=== PATIENT | female | born 1975 | race Caucasian/White ===

== ENCOUNTER 2016-10-16 09:23 | Emergency (ER) | payer OTHER ==
[2016-10-16 09:23] VITALS: BMI 26.8
[2016-10-16 10:46] LABS: RBC URINE 1 /hpf (0-3); URINE BACTERIA RARE (<OCC); URINE BILIRUBIN NEGATIVE (NEGATIVE); URINE BLOOD NEGATIVE (NEGATIVE); URINE COLOR Yellow (YELLOW); URINE GLUCOSE (UA) NORMAL (Normal); URINE KETONE NEGATIVE (NEGATIVE); URINE LEUKOCYTE ESTERASE TRACE Leu/uL (Negative); URINE PROTEIN NEGATIVE (NEGATIVE); URINE UROBILINOGEN NORMAL mg/dL (0.2-1.0); WBC URINE 11 /hpf (0-5)
--- NOTE | 2016-10-16 11:00 | C.PDOC ---
History Of Present Illness 41 y/o female presents to the ED with complains of suprapubic pain x6 days which started after seeing OBGYMedardo Hernandez. 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 Pt states pain has been constant, radiates to back and has associated dysuria. Pt has not made appointment for US yet. Denies GI symptoms, fever, chills, vag bleeding or any other complaints. History of hysterectomy. Time Seen by Provider: 10/16/16 09:47 Chief Complaint (Nursing): Female Genitourinary History Per: Patient History/Exam Limitations: no limitations Onset/Duration Of Symptoms: Days Current Symptoms Are (Timing): Still Present Severity: Moderate Recent travel outside of the [place]: No Past Medical History Reviewed: Historical Data, Nursing Documentation, Vital Signs Vital Signs: Last Vital Signs Temp 98 F 10/16/16 09:27 Pulse 99 H 10/16/16 09:27 Resp 18 10/16/16 09:27 BP 103/70 10/16/16 09:27 Pulse Ox 84 L 10/16/16 12:51 Surgical History: (x2) - [facility] Procedures ASPIR CURETT UTERUS NEC (01/20/14) LAPAROSCOP LYSIS-PERITONEAL ADHES (06/15/14) LAPAROSCOPIC TOTAL ABDOMINAL HYSTERECTOMY (01/20/14) OTH LAPAROSCOP LOCAL EXCIS/DESTRUCT OVARY (01/20/14) REMOVE BOTH FALLOP TUBES (01/20/14) Family History: States: Unknown Family Hx - Social History Hx Tobacco Use: No Hx Alcohol Use: No Hx Substance Use: No - Immunization History Hx Tetanus Toxoid Vaccination: No Hx Influenza Vaccination: No Hx Pneumococcal Vaccination: No Review Of Systems Except As Marked, All Systems Reviewed And Found Negative. Constitutional: Negative for: Fever, Chills Gastrointestinal: Positive for: Abdominal Pain (suprapubic). Negative for: Vomiting, Diarrhea Genitourinary: Positive for: Dysuria. Negative for: Hematuria, Vaginal Bleeding Musculoskeletal: Positive for: Back Pain Physical Exam - Physical Exam Appears: Non-toxic, No Acute Distress Skin: Warm, Dry, No Rash Head: Atraumatic, Normacephalic Neck: Normal, Normal ROM Chest: Symmetrical Cardiovascular: Rhythm Regular, No Murmur Respiratory: Normal Breath Sounds, No Rales, No Rhonchi, No Wheezing Gastrointestinal/Abdominal: Soft, Tenderness (mild suprapubic), No Guarding, No Rebound Back: Normal Inspection, No CVA Tenderness Extremity: Normal ROM Extremity: Bilateral: Atraumatic Neurological/Psych: Oriented x3, Normal Speech ED Course And Treatment - Laboratory Results Lab Interpretation: Abnormal Interpretation Of Abnormal: UA shows (+) UTI O2 Sat by Pulse Oximetry: 84 (room air) Pulse Ox Interpretation: Abnormal - CT Scan/US US TV Other Rad Studies (CT/US): Read By Radiologist CT/US Interpretation: FINDINGS: No fluid collections, soft tissue masses or other findings of consequence. No uterine remnant or evidence of residual adnexal tissue. IMPRESSION: No acute findings related to/accounting for the clinical presentation. Progress Note: Plan: urine, US transvaginal Medical Decision Making Medical Decision Makin yo F presents with pelvic pain and dysuria x 6 days. Plan: -UA, urine culture -TV US w/ doppler UA shows (+) UTI. TV US shows no acute findings. Lab and US results d/w the patient. On re-evaluation, patient is laying in bed comfortably in no acute distress, c/o mild suprapubic pain still. On exam, abdomen remains soft with mild suprapubic tenderness, with no guarding and no rebound. Given toradol IM for pain. Based on history, exam and diagnostic results, plan will be for outpatient f/u with the clinic. Patient verbalize understanding of diagnosis and further plan of care. I have given the patient opportunity to ask questions. Follow up with the clinic in 2 days without fail. Take medications as prescribed. Return to the ER at any time for any new or worsening symptoms. Disposition - Disposition Disposition: HOME/ ROUTINE Disposition Time: 12:15 Condition: GOOD Additional Instructions: Follow up with the clinic in 2 days without fail. Take medications as prescribed. Return to the ER at any time for any new or worsening symptoms. 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 - Scribe Statement The provider has reviewed the documentation as recorded by the Scribjoseline Casanova All medical record entries made by the Siobhanibjoseline were at my direction and personally dictated by me. I have reviewed the chart and agree that the record accurately reflects my personal performance of the history, physical exam, medical decision making, and the department course for this patient. I have also personally directed, reviewed, and agree with the discharge instructions and disposition.
[2016-10-16] MEDS ORDERED: Sodium Chloride 0.9% 0 ML ONE (11:23)
--- NOTE | 2016-10-16 12:21 | US ---
PROCEDURE: Pelvic ultrasound HISTORY: Pelvic pain. Relevant surgical history: Hysterectomy, oophorectomy March 2016. COMPARISON: 02/05/2015 preoperative pelvic ultrasound. TECHNIQUE: Transabdominal, transvaginal. Real -time technique with 2D, duplex and color Doppler. FINDINGS: No fluid collections, soft tissue masses or other findings of consequence. No uterine remnant or evidence of residual adnexal tissue. IMPRESSION: No acute findings related to/accounting for the clinical presentation.
[2016-10-16 13:14] VITALS: BP 100/63; PULSE 65; RESP 16; TEMP 97.6; O2SAT 99
== END 2016-10-16 13:14 | disposition home or self-care (01) ==
LOC: C.ER 09:23
DX: N39.0 Urinary tract infection, site not specified (principal); R10.2 Pelvic and perineal pain
CPT/HCPCS: 76830; 76856; 81001; 84703; 87086; 87181; 96372; 99284; J1885

== ENCOUNTER 2017-12-02 13:51 | Emergency (ER) | payer OTHER ==
[2017-12-02 13:51] VITALS: BMI 29.0
[2017-12-02 14:48] VITALS: BP 124/82; PULSE 85; TEMP 97.9; O2SAT 98
--- NOTE | 2017-12-02 15:16 | C.PDOC ---
History Of Present Illness Pt c/o posterior neck pain. Denies injury. Time Seen by Provider: 12/02/17 14:51 Chief Complaint (Nursing): Back Pain History Per: Patient Onset/Duration Of Symptoms: Days (about 1 month) Current Symptoms Are (Timing): Still Present Quality Of Discomfort: "Pain" Severity: Moderate Previous Symptoms: Neck Pain Associated Symptoms: None Exacerbating Factor(s): Movement Additional History Per: Prior Records Past Medical History Reviewed: Historical Data, Nursing Documentation, Vital Signs Vital Signs: Last Vital Signs Temp 97.9 F 12/02/17 14:44 Pulse 85 12/02/17 14:44 Resp 16 12/02/17 14:44 BP 124/82 12/02/17 14:44 Pulse Ox 98 12/02/17 15:16 - Medical History PMH: No Chronic Diseases Surgical History: (x2) - [facility] Procedures ASPIR CURETT UTERUS NEC (01/20/14) LAPAROSCOP LYSIS-PERITONEAL ADHES (06/15/14) LAPAROSCOPIC TOTAL ABDOMINAL HYSTERECTOMY (01/20/14) OTH LAPAROSCOP LOCAL EXCIS/DESTRUCT OVARY (01/20/14) REMOVE BOTH FALLOP TUBES (01/20/14) Family History: States: Unknown Family Hx - Social History Hx Tobacco Use: No Hx Alcohol Use: No Hx Substance Use: No - Immunization History Hx Tetanus Toxoid Vaccination: No Hx Influenza Vaccination: No Hx Pneumococcal Vaccination: No Review Of Systems Except As Marked, All Systems Reviewed And Found Negative. Constitutional: Negative for: Fever, Weakness ENT: Negative for: Throat Pain Cardiovascular: Negative for: Chest Pain Respiratory: Negative for: Shortness of Breath Gastrointestinal: Negative for: Vomiting, Abdominal Pain Musculoskeletal: Positive for: Neck Pain. Negative for: Back Pain Skin: Negative for: Rash Neurological: Negative for: Weakness, Numbness, Headache Physical Exam - Physical Exam Appears: Non-toxic, No Acute Distress Skin: Normal Color, Warm, Dry, No Rash Head: Atraumatic, Normacephalic Eye(s): bilateral: Normal Inspection, PERRL, EOMI Neck: Normal ROM, No Midline Cervical Tenderness, Paracervical Tenderness, No Step Off Deformity, Supple Lymphatic: No Adenopathy Cardiovascular: Rhythm Regular Respiratory: Normal Breath Sounds, No Accessory Muscle Use Back: No Vertebral Tenderness Extremity: Normal ROM Neurological/Psych: Oriented x3, Normal Motor, Normal Sensation ED Course And Treatment O2 Sat by Pulse Oximetry: 98 Pulse Ox Interpretation: Normal Disposition Counseled Patient/Family Regarding: Diagnosis, Need For Followup, Rx Given - Disposition Referrals: [facility] [Outside] Disposition: HOME/ ROUTINE Disposition Time: 15:19 Condition: STABLE Additional Instructions: Follow up in the clinic for further evaluation and treatment. Return to the ER if you develop weakness, numbness, worsening of symptoms or if you have any other concerns. Prescriptions: Capsaicin 1 applic TP TID PRN #1 cream..g. PRN Reason: Pain, Moderate (4-7) Cyclobenzaprine [Cyclobenzaprine HCl] 10 mg PO TID PRN #15 tab PRN Reason: Muscle Spasm Instructions: Generalized Neck Pain (DC) Print Language: MACEDONIAN - Clinical Impression Clinical Impression: Posterior neck pain
[2017-12-02 15:28] VITALS: RESP 20
== END 2017-12-02 15:27 | disposition home or self-care (01) ==
LOC: C.ER 13:51
DX: M54.2 Cervicalgia (principal)

== ENCOUNTER 2018-01-20 18:56 | Emergency (ER) | payer SELFPAY ==
[2018-01-20 18:56] VITALS: BMI 29.0
[2018-01-20 19:26] VITALS: BP 102/65; PULSE 78; RESP 20; TEMP 98.1; O2SAT 96
--- NOTE | 2018-01-20 21:43 | C.PDOC ---
History Of Present Illness 42 y/o female presents to ED with c/o neck pain radiating to upper back intermittently for 2 months. Patient was seen at ED 1 month ago, given Muscle relaxant and Topical analgesic which is no longer helping. Patient denies change in sensation, headache, dizziness, fever, chills, trauma, injury or any other complaints at this time. Time Seen by Provider: 01/20/18 19:29 Chief Complaint (Nursing): Back Pain History Per: Patient History/Exam Limitations: no limitations Onset/Duration Of Symptoms: Days, Intermittent Episodes Current Symptoms Are (Timing): Still Present Quality Of Discomfort: "Pain" Past Medical History Reviewed: Historical Data, Nursing Documentation, Vital Signs Vital Signs: Last Vital Signs Temp 98.1 F 01/20/18 19:21 Pulse 78 01/20/18 19:21 Resp 20 01/20/18 19:21 BP 102/65 01/20/18 19:21 Pulse Ox 96 01/20/18 22:01 - Medical History PMH: No Chronic Diseases Surgical History: (x2) - [facility] Procedures ASPIR CURETT UTERUS NEC (01/20/14) LAPAROSCOP LYSIS-PERITONEAL ADHES (06/15/14) LAPAROSCOPIC TOTAL ABDOMINAL HYSTERECTOMY (01/20/14) OTH LAPAROSCOP LOCAL EXCIS/DESTRUCT OVARY (01/20/14) REMOVE BOTH FALLOP TUBES (01/20/14) Family History: States: No Known Family Hx - Social History Hx Tobacco Use: No Hx Alcohol Use: No Hx Substance Use: No - Immunization History Hx Tetanus Toxoid Vaccination: No Hx Influenza Vaccination: No Hx Pneumococcal Vaccination: No Review Of Systems Constitutional: Negative for: Fever, Chills Cardiovascular: Negative for: Chest Pain Gastrointestinal: Negative for: Nausea, Vomiting, Abdominal Pain Musculoskeletal: Positive for: Neck Pain, Back Pain Skin: Negative for: Rash Neurological: Negative for: Weakness, Numbness Physical Exam - Physical Exam Appears: Non-toxic, No Acute Distress Skin: Warm, Dry, No Rash Head: Atraumatic, Normacephalic Eye(s): bilateral: Normal Inspection Oral Mucosa: Moist Neck: Paracervical Tenderness, Supple Cardiovascular: Rhythm Regular Respiratory: Normal Breath Sounds, No Rales, No Rhonchi, No Wheezing Gastrointestinal/Abdominal: Soft, No Tenderness, No Guarding, No Rebound Back: No CVA Tenderness, No Muscle Spasm Neurological/Psych: Oriented x3, Normal Speech, Normal Motor, Normal Sensation ED Course And Treatment O2 Sat by Pulse Oximetry: 96 (RA) Pulse Ox Interpretation: Normal - CT Scan/US CT cervical spine Other Rad Studies (CT/US): Read By Radiologist, Radiology Report Reviewed CT/US Interpretation: IMPRESSION: 1. Straightening of the cervical spine. 2. Few ground glass opacities lung apices Reassessment Condition: Improved Medical Decision Making Medical Decision Making: Plan: Valium and Toradol administered On re evaluation patient states pain has improved, CT scan results d/w pt who is advised to follow up with dr Rockwell for follow up CT lung findings . Patient agrees with plan on discharge and instructed to follow up with PMD in 1-2 days. Disposition Counseled Patient/Family Regarding: Diagnosis, Need For Followup, Rx Given - Disposition Disposition: HOME/ ROUTINE Disposition Time: 21:58 Condition: STABLE Additional Instructions: Please follow up with PMD / or in clinic Take medications as directed Return to ER if worse Prescriptions: Methocarbamol [Robaxin] 500 mg PO BID #10 tab Naproxen [Naprosyn] 1 tab PO BID PRN #20 tab PRN Reason: Pain Instructions: Muscle Spasms (DC) Forms: [employer] (Yakut) Print Language: BAHRAINI - Clinical Impression Clinical Impression: Neck muscle spasm - PA / [employer] / Resident Statement MD/DO has reviewed & agrees with the documentation as recorded. - Scribe Statement The provider has reviewed the documentation as recorded by the Dionne Cortes All medical record entries made by the Dionne were at my direction and personally dictated by me. I have reviewed the chart and agree that the record accurately reflects my personal performance of the history, physical exam, medical decision making, and the department course for this patient. I have also personally directed, reviewed, and agree with the discharge instructions and disposition.
--- NOTE | 2018-01-21 12:54 | CT ---
Date of service: 01/20/2018 PROCEDURE: CT Cervical Spine without contrast HISTORY: moderate diffuse neck pain, COMPARISON: None available. TECHNIQUE: Axial computed tomography images were obtained of the cervical spine without the use of intravenous contrast. Coronal and sagittal reformatted images were created and reviewed. Radiation dose: Total exam DLP = 409.95 mGy-cm. This CT exam was performed using one or more of the following dose reduction techniques: Automated exposure control, adjustment of the mA and/or kV according to patient size, and/or use of iterative reconstruction technique. FINDINGS: VERTEBRAE: The vertebral bodies are maintained in height. Normal alignment is maintained. There is straightening of the normal lordotic curvature which may indicate muscular spasm. The atlantoaxial articulation and odontoid process are intact. DISCS/SPINAL CANAL/NEURAL FORAMINA: No significant central canal or neural foraminal stenosis. Discs heights are grossly preserved. PARASPINAL SOFT TISSUES: Unremarkable. OTHER FINDINGS: Nonspecific mild ground-glass opacity in both lung apices. IMPRESSION: No fracture/ dislocation. Possible muscular spasm. Nonspecific mild ground-glass opacity in both lung apices. The preliminary findings for this examination were reported by [facility] at 9:37 p.m. on 01/20/2018. There is concurrence of this report with the preliminary findings.
== END 2018-01-20 22:04 | disposition home or self-care (01) ==
LOC: C.ER 18:56
DX: M62.838 Other muscle spasm (principal)
CPT/HCPCS: 72125; 96372; 99283; J1885

== ENCOUNTER 2018-04-28 18:53 | Emergency (ER) | payer OTHER ==
[2018-04-28 18:53] VITALS: BMI 29.0
[2018-04-28 19:16] VITALS: BP 138/84; PULSE 70; RESP 14; TEMP 98.2; O2SAT 96
[2018-04-28] MEDS ORDERED: Dexamethasone 4 mg/1 ml IM STA (20:08)
--- NOTE | 2018-04-28 20:12 | C.PDOC ---
History Of Present Illness Patient complains of sore throat for 4 days and non-productive cough for 2 days. Patient had amoxicillin 500mg at home and has been taking it twice a day for the past 4 days. She additionally complains of anal itching for 2 months. She states it is very itchy and has tried OTC anti-itch cream without relief. Denies any fever, headache, abdominal pain, rectal pain, hematochezia, melena, or other associated symptoms. Time Seen by Provider: 04/28/18 19:43 Chief Complaint (Nursing): ENT Problem History Per: Patient History/Exam Limitations: no limitations Onset/Duration Of Symptoms: Days Current Symptoms Are (Timing): Still Present Past Medical History Reviewed: Historical Data, Nursing Documentation, Vital Signs Vital Signs: Last Vital Signs Temp 98.2 F 04/28/18 19:13 Pulse 70 04/28/18 19:13 Resp 14 04/28/18 19:13 BP 138/84 04/28/18 19:13 Pulse Ox 96 04/28/18 19:13 - Medical History PMH: GERD Surgical History: (x2) - [facility] Procedures ASPIR CURETT UTERUS NEC (01/20/14) LAPAROSCOP LYSIS-PERITONEAL ADHES (06/15/14) LAPAROSCOPIC TOTAL ABDOMINAL HYSTERECTOMY (01/20/14) OTH LAPAROSCOP LOCAL EXCIS/DESTRUCT OVARY (01/20/14) REMOVE BOTH FALLOP TUBES (01/20/14) Family History: States: Unknown Family Hx - Social History Hx Tobacco Use: No Hx Alcohol Use: No Hx Substance Use: No - Immunization History Hx Tetanus Toxoid Vaccination: No Hx Influenza Vaccination: No Hx Pneumococcal Vaccination: No Review Of Systems Constitutional: Negative for: Fever ENT: Positive for: Throat Pain (sore. ) Respiratory: Positive for: Cough (productive. ) Gastrointestinal: Positive for: Other (anal itching. ). Negative for: Abdominal Pain, Melena, Hematochezia, Rectal Pain Neurological: Negative for: Headache Physical Exam - Physical Exam Appears: Well, Non-toxic, No Acute Distress Skin: Warm, Dry Head: Atraumatic, Normacephalic Eye(s): bilateral: Normal Inspection, EOMI Throat: Erythema (mild. ), No Exudate, No Drooling, No Mass Neck: Normal ROM, Supple Chest: Symmetrical Cardiovascular: Rhythm Regular, No Murmur Respiratory: Normal Breath Sounds, No Accessory Muscle Use, No Rales, No Rhonchi, No Wheezing Gastrointestinal/Abdominal: Soft, No Tenderness Rectal: No Blood Streaked Stool, Hemorrhoids ((+) 1 external nonthrombosed hemorrhoid.), Other ((+) very irritated skin. (+) superficial abrasions. ) Extremity: Bilateral: Atraumatic, Normal ROM Neurological/Psych: Oriented x3, Normal Speech ED Course And Treatment O2 Sat by Pulse Oximetry: 96 (RA) Pulse Ox Interpretation: Normal Medical Decision Making Medical Decision Making: Impression: sore throat, rectal itching. On exam no clinical signs of strep. Rectal exam show hemorrhoids, no fissures or blood streaked stool. Will prescribe cream as well as Albendazole to try and help symptoms. Disposition Counseled Patient/Family Regarding: Need For Followup, Rx Given - Disposition Referrals: Belkys Rockwell MD [Staff Provider] - Disposition: HOME/ ROUTINE Disposition Time: 20:16 Condition: GOOD Additional Instructions: Take pill medication once, and may repeat dose if 2 weeks if necessary Frequent hand wahing and showers, Clean all linens and clothing in hot water. [place] el medicamento [place], y puede repetir la dosis si es necesario 2 semanas [place] de [place] y duchas frecuentes, limpie toda la ropa de cama y la ropa con [place]. 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 - Scribe Statement The provider has reviewed the documentation as recorded by the Scribe (Brigida Hartman) All medical record entries made by the Scribe were at my direction and personally dictated by me. I have reviewed the chart and agree that the record accurately reflects my personal performance of the history, physical exam, medical decision making, and the department course for this patient. I have also personally directed, reviewed, and agree with the discharge instructions and disposition.
[2018-04-28] MEDS ORDERED: Dexamethasone 4 mg/1 ml ONE (20:15)
== END 2018-04-28 20:45 | disposition home or self-care (01) ==
LOC: C.ER 18:53
DX: J02.9 Acute pharyngitis, unspecified (principal); K64.4 Residual hemorrhoidal skin tags; L29.9 Pruritus, unspecified
CPT/HCPCS: 96372; 99283; J1100